=== PATIENT | male | born 1965 | race Caucasian/White ===

== ENCOUNTER 2017-09-06 08:02 | Emergency (ER) | payer OTHER ==
[~2017-09-06] VITALS: Ht 170.2 cm; Wt 86.2 kg
[~2017-09-06 08:02] MED LIST: FLOMAX0.4 MG PO; HYDROCODONE-AP1 EAC6 PO; NORCO 5-325 TA1 EAC1 PO; ZOFRAN ODT4 MG PO
[2017-09-06] MEDS ORDERED: ASPIR 8181 MG PO (08:20)
[2017-09-06] MEDS ORDERED: AMBIEN 5 MG TABL5 M1 PO (08:21)
[2017-09-06] MEDS ORDERED: NORCO 10-325 T1 EACH PO (08:21)
[2017-09-06] MEDS ORDERED: LIPITOR 20 MG T20 M1 PO (08:21)
[2017-09-06] MEDS ORDERED: ULTRAM 50MG TAB50 MG PO (09:12)
[2017-09-06 09:19] VITALS: BP 147/97
== END 2017-09-06 09:21 | disposition home or self-care (01) ==
LOC: M.ERS 08:02
DX: S10.93XA Contusion of unspecified part of neck, initial encounter (principal); S50.02XA Contusion of left elbow, initial encounter; S20.212A Contusion of left front wall of thorax, initial encounter; V87.8XXA Person injured in other specified noncollision transport accidents involving motor vehicle (traffic), initial encounter; Y93.89 Activity, other specified; Y92.89 Other specified places as the place of occurrence of the external cause; Y99.8 Other external cause status

== ENCOUNTER 2017-11-11 10:58 | Emergency (ER) | payer OTHER ==
[~2017-11-11] VITALS: Ht 170.2 cm; Wt 92.5 kg
[~2017-11-11 10:58] MED LIST changes: +AMBIEN 5 MG TABL5 M1 PO; +ASPIR 8181 MG PO; +LIPITOR 20 MG T20 M1 PO; +NORCO 10-325 T1 EACH PO; +ULTRAM 50MG TAB50 MG PO
[2017-11-11 11:10] VITALS: BP 126/69
== END 2017-11-11 11:58 | disposition home or self-care (01) ==
LOC: M.ERS 10:58
DX: S93.491A Sprain of other ligament of right ankle, initial encounter (principal); Z87.442 Personal history of urinary calculi; Z86.73 Personal history of transient ischemic attack (TIA), and cerebral infarction without residual deficits; W18.42XA Slipping, tripping and stumbling without falling due to stepping into hole or opening, initial encounter; Y93.89 Activity, other specified; Y92.89 Other specified places as the place of occurrence of the external cause; Y99.8 Other external cause status

== ENCOUNTER 2018-01-17 18:58 | Emergency (ER) | payer OTHER ==
[~2018-01-17] VITALS: Ht 170.2 cm; Wt 93.0 kg
[2018-01-17 19:25] LABS: ABSOLUTE BASOPHILS 0.1 thou/uL (0.0-0.2); ABSOLUTE EOSINOPHILS 0.4 thou/uL (0.0-0.7); ABSOLUTE LYMPHOCYTES 2.8 thou/uL (0.8-5.3); ABSOLUTE NEUTROPHILS 5.1 thou/uL (1.6-8.1); BASOPHILS 0.6 %; HEMOGLOBIN 15.7 gm/dL (14.0-18.0); LYMPHOCYTES 29.6 %; MCH 30.5 pg (26.0-34.0); MCHC 34.1 g/dL (28.0-37.0); MCV 89.4 fL (80.0-100.0); MONOCYTES 10.9 %; MPV 9.6 fl. (7.2-11.1); NUCLEATED RBCS 0 /100WBC; PLATELET COUNT* 266 thou/uL (150-400); POLYS 54.9 %; RBC 5.15 mil/uL (4.50-6.00); RDW-CV 13.3 % (10.5-14.5); WBC 9.3 thou/uL (4.0-11.0)
[2018-01-17 19:32] LABS: CALCIUM 8.3 mg/dL (8.5-10.1); POTASSIUM 3.5 mmol/L (3.5-5.1)
[2018-01-17 19:36] LABS: ALBUMIN 3.7 g/dL (3.4-5.0); TOTAL PROTEIN 7.3 g/dL (6.4-8.2)
[2018-01-17 19:43] LABS: URINE BLOOD 3+ (Negative); URINE CLARITY CLOUDY; URINE COLOR RED; URINE GLUCOSE-RANDOM NEGATIVE (Negative); URINE KETONES 1+ (Negative); URINE LEUKOCYTES-REFLEX 1+ (Negative); URINE PROTEIN 3+ (Negative); URINE SPECIFIC GRAVITY >= 1.030 (1.005-1.030)
[2018-01-17 19:44] LABS: ICTOTEST (BILI CONFIRMATORY) Negative (Negative); URINE BILIRUBIN 3+ (Negative); URINE NITRITE-REFLEX POSITIVE (Negative)
[2018-01-17 19:45] LABS: CASTS None Seen /LPF (None Seen); CRYSTALS None Seen /LPF (None Seen); SQUAMOUS 0-3 Few /LPF (0-3); URINE RBC >20 Many /HPF (0-2)
[2018-01-17 19:46] LABS: YEAST-REFLEX Present (None Seen)
[2018-01-17] MEDS ORDERED: ZOFRAN ODT4 MG PO (20:17)
[2018-01-17] MEDS ORDERED: IBUPROFEN 800800 M1 PO (20:17)
[2018-01-17] MEDS ORDERED: NORCO 5-325 TA1 EAC1 PO (20:17)
[2018-01-17] MEDS ORDERED: TAMSULOSIN HCL0.4 MG PO (20:17)
[2018-01-17] MEDS ORDERED: BACTRIM DS TAB1 EACH PO (20:21)
[2018-01-17 21:15] VITALS: BP 124/91
== END 2018-01-17 21:17 | disposition home or self-care (01) ==
LOC: M.ERS 18:58
PROVIDERS: Nurse Practitioner Family
DX: N39.0 Urinary tract infection, site not specified (principal); N20.0 Calculus of kidney